=== PATIENT | male | born 1950 | race Caucasian/White ===

== ENCOUNTER 2016-07-23 09:53 | Day surgery (SDC) | payer OTHER ==
[~2016-07-23] VITALS: Ht 180.3 cm; Wt 97.1 kg
[~2016-07-23 09:53] MED LIST: ALLOPURINOL300 MG PO; ALTACE10 M1 PO; ASPIRIN81 M2 PO; ATORVASTATIN CA20 MG PO; B-COMPLEX PLUS1 EACH PO; DAILY VALUE1 EACH PO; FISH OIL; GLUCOSAMINE &1 EACH PO; Halfprin PO; LIPITOR; METOPROLOL SUCC50 MG PO; NIFEDIPINE ER90 MG PO; NITROSTAT0.4 MG SL; OMEGA-3 FISH O1 EAC4 PO; RAMIPRIL10 MG PO; RED YEAST RICE600 MG PO
[2016-07-23] MEDS ORDERED: ASPIR 8181 M1 PO (10:16)
[2016-07-23 18:15] VITALS: BP 147/74
[2016-07-23 18:30] VITALS: BP 158/79
[2016-07-23 19:50] VITALS: BP 157/79
[2016-07-23 19:58] LABS: METH RESISTANT S AUREUS PCR NEGATIVE (NEGATIVE)
[2016-07-23 20:05] LABS: PROBE CHECK PASS; SPECIMEN PROCESSING CONTROL PASS
[2016-07-23 20:20] VITALS: BP 142/66
[2016-07-23 21:00] VITALS: BP 146/79
[2016-07-23 22:00] VITALS: BP 151/76
[2016-07-24] VITALS: BP 157/79
[2016-07-24 02:00] VITALS: BP 138/80
[2016-07-24 04:00] VITALS: BP 148/76
[2016-07-24 04:47] LABS: EOSINOPHIL (%) 5.6 % (0-5); EOSINOPHIL COUNT 0.4 K/uL (0-0.3); HEMATOCRIT 41.2 % (38.0-50.0); IMMATURE GRANULOCYTE (%) 0.3 % (0.0-0.7); INSTRUMENT ABS NEUTROPHIL CT 4.4 K/uL; LYMPHOCYTE COUNT 1.7 K/uL (1.0-2.8); MCHC 34.5 G/DL (30.0-36.0); MEAN PLAT.VOLUME 10.2 uM^3 (9.0-12.4); MONOCYTE (%) 8.2 % (3-12); MONOCYTE COUNT 0.6 K/uL (0-0.8); NEUTROPHIL (%) 61.4 % (45-76); NEUTROPHIL COUNT 4.4 K/uL (1.8-6.4); PLATELET COUNT 183 K/uL (156-360); RBC DIS.WIDTH-CV 12.2 % (11.8-14.6); RED BLOOD COUNT 4.58 M/uL (4.00-5.50); WHITE BLOOD COUNT 7.1 K/uL (4.1-10.2)
[2016-07-24 05:09] LABS: CHLORIDE 108 mEq/L (99-109); POTASSIUM 4.4 mEq/L (3.7-5.4); SODIUM 139 mEq/L (136-147)
[2016-07-24 05:11] LABS: GLUCOSE 98 mg/dL (70-99)
[2016-07-24 05:12] LABS: ANION GAP 6 MEQ/L (2-14)
[2016-07-24 05:14] LABS: GFR ESTIMATE (CALCULATED) > 59 mL/min/
[2016-07-24 05:15] LABS: UREA NITROGEN (BUN) 10 mg/dL (9-23)
[2016-07-24 06:00] VITALS: BP 154/83
[2016-07-24 07:54] VITALS: BP 151/93
[2016-07-24] MEDS ORDERED: CLOPIDOGREL75 MG PO (10:28)
[2016-07-24] MEDS ORDERED: ASPIR-LOW81 MG PO (10:28)
== END 2016-07-24 11:40 | disposition home or self-care (01) ==
LOC: CATH 09:53 → 4WEST 15:12 → 2SOUTH 15:12 → 4WEST 18:15
PROVIDERS: Internal Medicine Cardiovascular Disease
DX: I25.10 Atherosclerotic heart disease of native coronary artery without angina pectoris (principal); I10 Essential (primary) hypertension; I48.0 Paroxysmal atrial fibrillation; E78.5 Hyperlipidemia, unspecified; Z79.82 Long term (current) use of aspirin; Z79.02 Long term (current) use of antithrombotics/antiplatelets; E66.9 Obesity, unspecified; Z68.31 Body mass index [BMI] 31.0-31.9, adult
CPT/HCPCS: 93458; C9600; 80048; 85025; 85347; 87641; 93005; C1725; C1769; C1874; C1887; G0378; J1644; J2250; J3010; J3246; J7030